=== PATIENT | female | born 1995 | race Caucasian/White ===

== ENCOUNTER 2018-01-26 00:48 | Outpatient (CLI) | payer MEDICAID, SELFPAY ==
--- NOTE | 2018-01-26 12:48 | DI.US_ITS ---
SYMPTOM/DIAGNOSIS: RT PELVIC PAIN, R10.2 PELVIC ULTRASOUND: Pelvic ultrasound was performed transabdominally and transvaginally. Please see the accompanying work sheet for measurements of the pelvic structures. Myometrium appears normal. Endometrial stripe is homogeneous and about 5 mm. in thickness. The ovaries have a normal follicular appearance. A small quantity of free fluid is noted in the adnexal regions bilaterally which may be physiologic. No significant fluid in the cul-de-sac. Limited scanning of the kidneys is unremarkable. CONCLUSION: Negative pelvic ultrasound.
[2018-01-26 14:05] LABS: Bilirubin Negative (Negative); Blood Small (Negative); Clarity Cloudy; Glucose Negative (Negative); Ketones Negative (Negative); Leukocyte Esterase Large (Negative); Nitrite Positive (Negative); Specific Gravity 1.015 (1.005-1.025); Urobilinogen 0.2 EU/dL (Up TO 0.2)
[2018-01-26 14:13] LABS: C & S Indicated? C&S Done As Ordered; WBC >50 HPF (0-5)
== END 2018-01-26 01:08 ==
PROVIDERS: PCP Physician Assistant Medical; Visit Provider Physician Assistant Medical
DX: R10.2 Pelvic and perineal pain (principal); N39.0 Urinary tract infection, site not specified
CPT/HCPCS: 87077; 76830; 76856; 81003; 81015; 87086; 87186

== ENCOUNTER 2018-07-31 15:09 | Outpatient (REF) | payer MEDICAID, SELFPAY | END 2018-07-31 15:29 | LOC: NCHCN 15:09 | PROVIDERS: PCP Physician Assistant Medical; Visit Provider Physician Assistant Medical | DX: N39.0 Urinary tract infection, site not specified (principal) | CPT/HCPCS: 87077; 87086; 87186 ==

== ENCOUNTER 2018-10-20 15:36 | Outpatient (REF) | payer OTHER, SELFPAY ==
[2018-10-25 16:40] LABS: Carboxy-THC Interpretation Positive.; Delta-9 CarboxyThc by LC-MS/MS 7 ng/mL (Cutoff:<3)
== END 2018-10-20 15:56 ==
LOC: NCHCN 15:36
PROVIDERS: PCP Physician Assistant Medical; Visit Provider Physician Assistant Medical
DX: Z13.89 Encounter for screening for other disorder (principal)
CPT/HCPCS: 80349

== ENCOUNTER 2019-04-09 20:01 | Outpatient (REF) | payer SELFPAY ==
--- NOTE | 2019-04-09 14:30 | PAPFT_PTH ---
PATIENT: Garima Stanford LOC: [facility]#:[id number] AGE/SX: 23/F ROOM: RE04/09/[address]: Tenzin Rios : 1995 BED: DIS: 04/09/2019 SPEC #: [id number] RECD: 04/12/19 12:58 STATUS: BETZY RERudy #: [id number] IRWIN: 04/09/19 14:[address]: Tenzin Rios DEPT: [facility] Cytology RECD BY: Анна Allred Tissues: 1 - CX/ENDOCX FOR PAP SMEARS Procedures: PAP THIN PREP/UVM Screening Comments: [id number]
[2019-04-12 14:38] LABS: Chlamydia Result Negative (Negative); GC Result Negative (Negative)
== END 2019-04-09 20:21 ==
LOC: NCHCN 20:01
PROVIDERS: PCP Physician Assistant Medical; Visit Provider Physician Assistant Medical
DX: Z00.00 Encounter for general adult medical examination without abnormal findings (principal); R10.2 Pelvic and perineal pain; Z11.3 Encounter for screening for infections with a predominantly sexual mode of transmission; Z12.4 Encounter for screening for malignant neoplasm of cervix; Z01.419 Encounter for gynecological examination (general) (routine) without abnormal findings
CPT/HCPCS: 87491; 87591; 88142; 87480; 87510; 87660

== ENCOUNTER 2019-10-29 09:58 | Outpatient (REF) | payer SELFPAY | END 2019-10-29 10:18 | LOC: NCHCN 09:58 | PROVIDERS: PCP Physician Assistant Medical; Visit Provider Physician Assistant Medical | DX: N39.0 Urinary tract infection, site not specified (principal) | CPT/HCPCS: 87086 ==

== ENCOUNTER 2021-03-06 13:47 | Emergency (ER) | payer SELFPAY ==
[2021-03-06 13:52] VITALS: BP 115/71; PULSE 84; RESP 16; O2SAT 99
--- NOTE | 2021-03-06 14:05 | ED.GENADUL_ITS ---
Discharge Plan Disposition Patient Disposition: HOME Condition: Improving Discharge Details Clinical Impression: UTI (urinary tract infection) Primary Care Provider: Tenzin Rios ED Provider: Paddy Cifuentes Home Meds and New Rx's Prescriptions: New sulfamethoxazole-trimethoprim [Bactrim DS] 800-160 mg tablet 1 tab PO BID 7 Days Qty: 14 RF: 0 phenazopyridine [Pyridium] 100 mg tablet 100 mg PO TID PRN (Reason: pain) Qty: 6 RF: 0 Continued trazodone 50 MG tablet 50 mg PO DAILY RF: 0 ranitidine HCl 300 MG tablet 300 mg PO DAILY RF: 0 calcium carbonate 500 MG tablet,chewable 500 mg PO RF: 0 albuterol sulfate [ProAir HFA] 8.5 GM HFA aerosol inhaler 1 puff Inhalation Q4H PRN RF: 0 medroxyprogesterone [Depo-Provera] 150 MG/1 ML syringe 150 mg IM RF: 0 Discharge Instructions Instructions: Urinary Tract Infection in Women (ED) Additional Instructions: May use Pyridium as prescribed as needed for burning discomfort. This off turn the urine bright orange. Take as prescribed until finished. Return to the emergency department for any acute concerns. Medical Decision Making 25-year-old female presents with hours of urinary freq, urgency, burning with urination. No back pain, fever or vomiting. Denies being . Her labs are reassuring as is her exam. Urinalysis consistent with urinary tract infection. Will treat with Keflex and Pyridium. She is stable and appropriate for outpatient management HPI General Mode of arrival: ambulatory . Date/Time Provider Initiated Documentation: 03/06/21 13:47 . Limitations to Documentation: no limitations . Information obtained by: patient . History of Present Illness 25 year old F presents to the emergency department with the chief complaint of I think I have a UTI, described as moderate, and is localized to the pelvis. Patient reports no radiation. Patient started experiencing this hour(s) and it has been constant. No relieving factors improve symptom(s), No exacerbating factors reported . Patient did receive the following treatments prior to arri kelsea, none Related Data Home Medications Medication Instructions Recorded Confirmed albuterol sulfate [ProAir HFA] 1 puff INHALATION Q4H PRN inhaler 11/09/15 02/09/18 calcium carbonate 500 mg PO tab.chew 11/09/15 02/09/18 medroxyprogesterone [Depo-Provera] 150 mg IM 11/09/15 02/09/18 ranitidine HCl 300 mg PO DAILY tab-cap 11/09/15 02/09/18 trazodone 50 mg PO DAILY tab-cap 11/09/15 02/09/18 phenazopyridine [Pyridium] 100 mg PO TID PRN #6 tab 03/06/21 sulfamethoxazole-trimethoprim 1 tab PO BID 7 Days #14 tab 03/06/21 [Bactrim DS] Previous Rx's Medication Instructions Recorded phenazopyridine [Pyridium] 100 mg PO TID PRN #6 tab 03/06/21 sulfamethoxazole-trimethoprim 1 tab PO BID 7 Days #14 tab 03/06/21 [Bactrim DS] Allergies Allergy/AdvReac Type Severity Reaction Status Date / Time lactose Allergy Unverified 03/06/21 13:55 Penicillins Allergy Unverified 03/06/21 13:55 General Stated Complaint: Urinary MADISON: 4 Review of Systems Narrative: No recent illness. No vaginal discharge or bleeding. 6 systems reviewed and otherwise negative. PFSH All Active Problems (Updated 03/06/21 @ 14:19 by Paddy Cifuentes MD) UTI (urinary tract infection) (Acute) Recurrent UTI (Acute 11/09/15) Medullary sponge kidney (Acute 11/27/15) Hematuria (Acute 11/09/15) Abdominal pain in female (Acute 11/09/15) Medical History Abdominal pain Abnormal finding on ultrasound Contraception Exposure to cigarette smoke Family history of Crohn's disease Female pelvic pain Indigestion Kidney, medullary sponge Social History Smoking/Tobacco Use Status: Never Smoking risk assessment performed?: Yes Alcohol Intake: current Alcohol Intake frequency: holidays/special occasions only Drug use: Daily Substance use type: marijuana Do you feel safe at home: Yes Do you feel safe in your relationship?: Yes Exam Narrative Exam Narrative: GEN: awake, alert, oriented 3. Pleasant, well groomed, interactive. HEAD: Normocephalic, atraumatic ENT: Mucous membranes moist, oropharynx unremarkable, External ear exam unremarkable EYES: PERRL, EOMI NECK: Full ROM, no ALYTON, no menigismus CHEST/RESP: Nontender, clear to auscultation bilateral, no wheeze/rhonchi/rales CARDIOVASCULAR: RRR, no murmur, rub hema. 2+ Rad pulse bilateral ABDOMEN: Soft, slightly tender suprapubic, no mass. +Bowel sounds EXT: Full ROM, no edema, no rash Neuro: Grossly normal neurologic exam, conversant, interactive. Psych: Speech fluent, thoughts congruent, affect normal Course Vital Signs Vital signs: Vital Signs Pulse 84 03/06/21 13:52 Respiratory Rate 16 03/06/21 13:52 Blood Pressure 115/71 03/06/21 13:52 Pulse Oximetry 99 03/06/21 13:52 Pulse 84 03/06/21 13:52 Respiratory Rate 16 03/06/21 13:52 Respiratory Effort Non-Labored 03/06/21 13:56 Blood Pressure 115/71 03/06/21 13:52 Blood Pressure Position Sitting 03/06/21 13:52 Pulse Oximetry 99 03/06/21 13:52 Oxygen Delivery Method Room Air 03/06/21 13:52 Oxygen Flow Rate 0 03/06/21 13:52
[2021-03-06 14:12] LABS: Bilirubin Negative (Negative); Blood Moderate (Negative); Clarity Cloudy (Clear); Glucose Negative (Negative); Ketones Negative (Negative); Leukocyte Esterase Small (Negative); Nitrite Negative (Negative); Specific Gravity >= 1.030 (1.005-1.025); Urobilinogen 0.2 EU/dL (Up TO 0.2); pH 6.5 (5-8)
[2021-03-06 14:21] LABS: Bacteria Moderate HPF (Negative); C & S Indicated? Yes; Casts Negative LPF (Negative); Crystals Negative HPF (Negative); Epithelial Cells Few HPF (Negative); Mucus Trace (Negative); WBC >50 HPF (0-5)
== END 2021-03-06 14:25 | disposition home or self-care (01) ==
PROVIDERS: Emergency Provider Emergency Medicine; PCP Physician Assistant Medical
DX: N39.0 Urinary tract infection, site not specified (principal); B96.20 Unspecified Escherichia coli [E. coli] as the cause of diseases classified elsewhere
CPT/HCPCS: 81025; 87077; 99283; 81003; 81015; 87086; 87186

== ENCOUNTER 2021-06-04 16:29 | Outpatient (REF) | payer SELFPAY | END 2021-06-04 16:30 | disposition home or self-care (01) | LOC: NCHCN 16:29 | PROVIDERS: PCP Physician Assistant Medical; Visit Provider Nurse Practitioner Family | DX: N39.0 Urinary tract infection, site not specified (principal) | CPT/HCPCS: 87086 ==

== ENCOUNTER 2021-06-05 19:04 | Emergency (ER) | payer SELFPAY ==
[2021-06-05 19:07] VITALS: BP 141/81; PULSE 97; RESP 18; TEMP 37; O2SAT 98
--- NOTE | 2021-06-05 19:15 | DI.CT_ITS ---
Exam(s) CT ABDOMEN PELVIS W EXAM: CT ABDOMEN PELVIS W INDICATION: RLQ pain. TECHNIQUE: FINDINGS: CT examination of the abdomen and pelvis was performed with a bolus infusion of 100 cc of Omnipaque 3 50. Images obtained through the lung bases are unremarkable. The liver is unremarkable in appearance. Gallbladder and bile ducts are CT normal. Pancreas appears normal. Spleen is unremarkable in appearance. Adrenals appear normal. The kidneys are unremarkable with no evidence of hydronephrosis, nephrolithiasis, or renal mass.. Ur inary bladder unremarkable. Abdominal aorta is of normal diameter and no major vascular abnormality is seen. No abdominal wall hernia. No abdominal or pelvic adenopathy. Uterus is unremarkable. There is a 25 millimeter in diameter intermediate attenuation right ovarian mass, likely hemorrhagic cyst. A fluid attenuation left ovarian 16 millimeter mass is noted consiste nt with cyst.. Appendix is normal. No evidence of diverticulitis or bowel obstruction. However note is made of poss ible mild wall thickening partially collapsed distal descending colon and sigmoid, please correlate r egarding the possibility of colitis. IMPRESSION: Possible hemorrhagic right ovarian cyst versus other ovarian pathology, pelvic ultrasound correlation recommended. Possible wall thickening, descending sigmoid colon, please correlate regarding possibility of colitis . RADIATION DOSE DELIVERED: 608.54mGy.cm Total DLP 608.54mGy.cm Total DLP !Error CTDIvol RADIATION OPTIMIZATION: All CT scans at this facility use at least one of these dose optimization te chniques: automated exposure control; mA and/or kV adjustment per patient size (includes targeted exa ms where dose is matched to clinical indication); or iterative reconstruction.
--- NOTE | 2021-06-05 19:27 | ED.GENADUL_ITS ---
Discharge Plan Disposition Patient Disposition: HOME Condition: Improving Discharge Details Clinical Impression: Ovarian cyst Primary Care Provider: Tenzin Rios ED Provider: Jerry Interiano Home Meds and New Rx's Prescriptions: New ibuprofen [IBU] 600 mg tablet 600 mg PO QID PRN (Reason: pain) Qty: 20 0RF Discharge Instructions Instructions: Ovarian Cyst (ED) Additional Instructions: Continue to stay well-hydrated and feel free to take [id number] pain medication. At this time no emergent findings have been noted but if you have any new or worsening symptoms, change in your condition, or further concerns that you feel or emergency feel free to return to the department for reassessment. While your symptoms are not classic for COVID-19 we have performed a swab given your reported headache and fever. It is recommended that if you continue to have the symptoms that you isolate from others until results are available which is typically in 24 to 48 hours. Referrals: [facility] [Provider Group] (Please call the office for discussion of follow-up for your ovarian cyst.) Discharge Data Discharge Date/Time-TO BE ENTERED AT DEPARTURE: 06/05/21 22:19 Medical Decision Making Patient presenting to the emergency department with chief complaint of headache, abdominal pain, fever chills, UTI. Patient states that she was seen at her primary care provider's office yesterday for complaints of her typical UTI symptoms today has acutely worsened. Physical exam shows no CVA tenderness but patient does elicit right lower quadrant pain with palpation. Plan to perform labs and CT imaging with concern of possible appendicitis or other intra- abdominal pathology localized to right lower quadrant. Have low suspicion of pyelonephritis but this is considered given patient's report of fever at home but no fever was noticed here. Will treat patient with fluids and Toradol pending results. Review of labs show a mild leukocytosis, normal CMP, and little ketones in urine with otherwise unremarkable findings. CT imaging showing ovarian cyst with some slight free fluid but otherwise unremarkable. Given patient's height leukocytosis but small ovarian cyst I did contact OB on-call. She did not feel this was concerning at this time and question possible other etiology for patient's symptoms. Asked patient about other symptoms which she denied. We will plan on performing Covid testing on a send out basis with patient continue to monitor symptoms and return if anything changes or worsens. At this time given that urinalysis appears unremarkable for infection I did discuss with patient risk versus benefit of stopping antibiotic and that very unlikely that 1 dose would stop patient's urinary symptoms. After discussion of diagnosis and plan of care patient has no further needs, questions, or concerns and states clear understanding to return to the emergency department for any worsening symptoms. Imaging Data Radiologic Study: Imaging: CT Scan Radiologist's impression: IMPRESSION: 1. 2.7 cm x 2.5 cm heterogeneous right ovarian lesion with varying density levels. A hemorrhagic enlarged follicle or cyst is suspected primarily in a young patient although this finding is not definitively characterized by the current exam. 1.3 cm dominant left ovarian follicle. Small amount of free fluid in the deep pelvis. 2. No acute bowel pathology demonstrated. Normal appendix. 3. Probable fatty infiltration of the liver, difficult to confidently diagnose by CT imaging after administration of intravenous contrast. Lab Data Lab results reviewed: Yes I reviewed the patient's lab results. Labs: Laboratory Tests Range/Units 06/05/21 06/05/21 06/05/21 19:28 19:30 19:30 WBC (4.4-10.8) 10^3/uL 12.72 H RBC (3.93-5.22) 10^6/uL 4.83 Hgb (11.2-15.7) g/dL 14.9 Hct (36.0-46.0) % 45.5 MCV (80-95) fL 94.2 MCH (27.0-33.0) pg 30.8 MCHC (32.0-36.0) % 32.7 RDW (11.7-14.6) % 14.1 Plt Count (130-400) 10^3/uL 224 MPV (8.0-11.0) fL 9.9 Immature Gran % 0.8 Neutrophils % 84.4 Lymphocytes % 4.2 Monocytes % 9.7 Eosinophils % 0.5 Basophils % 0.4 Nucleated RBC % % 0 Absolute Neutrophils (1.2-6.7) 10^3/uL 10.74 H Absolute Lymphocytes (1.2-3.4) 10^3/uL 0.53 L Absolute Monocytes (0.1-0.8) 10^3/uL 1.23 H Absolute Eosinophils (0.0-0.7) 10^3/uL 0.06 Absolute Basophils (0.0-0.2) 10^3/uL 0.05 Sodium (136-145) mmol/L 137 Potassium (3.5-5.1) mmol/L 3.5 Chloride (98-107) mmol/L 101 Carbon Dioxide (21.0-32.0) mmol/L 25.1 Anion Gap (3-11) mmol/L 10.9 BUN (7-18) mg/dL 9 Creatinine (0.55-1.02) mg/dL 0.6 Estimated GFR/1.73 m2 (mL/min/1.73m2) >= 60.00 Glucose (74-106) mg/dL 97 Calcium (8.5-10.1) mg/dL 9.2 Magnesium (1.8-2.4) mg/dL 1.9 Total Bilirubin (0.2-1.0) mg/dL 0.4 AST (15-37) U/L 15 ALT (14-59) U/L 32 Alkaline Phosphatase (46-116) U/L 99 Total Protein (6.4-8.2) g/dL 7.9 Albumin (3.4-5.0) g/dL 4.4 Lipase (73-393) U/L 350 Urine Color (Yellow) Yellow Urine Clarity (Clear) Sl Cloudy Urine pH (5-8) 7.5 Ur Specific Morton (1.005-1.025) 1.025 Urine Protein (Negative) mg/dL Negative Urine Ketones (Negative) mg/dL 40 H Urine Blood (Negative) Negative Urine Nitrite (Negative) Negative Urine Bilirubin (Negative) Negative Urine Urobilinogen (Up TO 0.2) EU/dL 0.2 Ur Leukocyte Esterase (Negative) Negative Urine Glucose (Negative) mg/dL Negative SARS-CoV-2 (PCR) (Negative) Nasopharyn COVID-19 PCR Ref Test Perform Site Range/Units 06/05/21 21:28 WBC (4.4-10.8) 10^3/uL RBC (3.93-5.22) 10^6/uL Hgb (11.2-15.7) g/dL Hct (36.0-46.0) % MCV (80-95) fL MCH (27.0-33.0) pg MCHC (32.0-36.0) % RDW (11.7-14.6) % Plt Count (130-400) 10^3/uL MPV (8.0-11.0) fL Immature Gran % Neutrophils % Lymphocytes % Monocytes % Eosinophils % Basophils % Nucleated RBC % % Absolute Neutrophils (1.2-6.7) 10^3/uL Absolute Lymphocytes (1.2-3.4) 10^3/uL Absolute Monocytes (0.1-0.8) 10^3/uL Absolute Eosinophils (0.0-0.7) 10^3/uL Absolute Basophils (0.0-0.2) 10^3/uL Sodium (136-145) mmol/L Potassium (3.5-5.1) mmol/L Chloride (98-107) mmol/L Carbon Dioxide (21.0-32.0) mmol/L Anion Gap (3-11) mmol/L BUN (7-18) mg/dL Creatinine (0.55-1.02) mg/dL Estimated GFR/1.73 m2 (mL/min/1.73m2) Glucose (74-106) mg/dL Calcium (8.5-10.1) mg/dL Magnesium (1.8-2.4) mg/dL Total Bilirubin (0.2-1.0) mg/dL AST (15-37) U/L ALT (14-59) U/L Alkaline Phosphatase (46-116) U/L Total Protein (6.4-8.2) g/dL Albumin (3.4-5.0) g/dL Lipase (73-393) U/L Urine Color (Yellow) Urine Clarity (Clear) Urine pH (5-8) Ur Specific Morton (1.005-1.025) Urine Protein (Negative) mg/dL Urine Ketones (Negative) mg/dL Urine Blood (Negative) Urine Nitrite (Negative) Urine Bilirubin (Negative) Urine Urobilinogen (Up TO 0.2) EU/dL Ur Leukocyte Esterase (Negative) Urine Glucose (Negative) mg/dL SARS-CoV-2 (PCR) (Negative) Positive A* Nasopharyn COVID-19 PCR Not Applicable Ref Test Perform Site [id number] [facility] Lab HPI General Mode of arrival: ambulatory . Date/Time Provider Initiated Documentation: 06/05/21 19:14 . Limitations to Documentation: no limitations . Information obtained by: patient, RN notes reviewed and old records reviewed . History of Present Illness 25 year old F presents to the emergency department with the chief complaint of Fever/UTI, described as moderate, with intensity rated at 10. Quality is described as aching, and is localized to the head and abdomen. Patient reports no radiation. Patient started experiencing this day(s) (1) and it has been constant. No exacerbating factors reported . Patient notes no other symptoms.. Patient did receive the following treatments prior to arrival, other (Started Bactrim today at 3 PM for) Related Data Home Medications Medication Instructions Recorded Confirmed ibuprofen 600 mg tablet (IBU) 600 mg PO QID PRN #20 tab 06/05/21 Previous Rx's Medication Instructions Recorded ibuprofen 600 mg tablet (IBU) 600 mg PO QID PRN #20 tab 06/05/21 Allergies Allergy/AdvReac Type Severity Reaction Status Date / Time lactose Allergy Unverified 06/05/21 19:13 Penicillins Allergy Unverified 06/05/21 19:13 General Stated Complaint: Urinary MADISON: 3 Review of Systems Constitutional Constitutional: Denies body ache(s), Reports chills, Reports fever(s), Reports malaise and Denies weakness Cardiovascular Cardiovascular: Denies chest pain Respiratory Respiratory: Reports system reviewed and no additional complaints, except as documented Gastrointestinal Gastrointestinal: Reports abdominal pain, Reports nausea and Reports vomiting Genitourinary Genitourinary: Reports as per HPI, Denies hematuria, Reports difficulty voiding, Reports dysuria and Reports urinary urgency Musculoskeletal Musculoskeletal: Denies back pain Neurologic Neurologic: Denies confusion and Denies weakness Psychiatric Psychiatric: Denies confusion PFSH All Active Problems (Updated 06/05/21 @ 22:14 by Jerry Interiano NP) Ovarian cyst (Acute) Recurrent UTI (Acute 11/09/15) Medullary sponge kidney (Acute 11/27/15) Hematuria (Acute 11/09/15) Abdominal pain in female (Acute 11/09/15) Medical History Abdominal pain Abnormal finding on ultrasound Contraception Exposure to cigarette smoke Family history of Crohn's disease Female pelvic pain Indigestion Kidney, medullary sponge Social History Smoking/Tobacco Use Status: Never Smoking risk assessment performed?: Yes Alcohol Intake: current Alcohol Intake frequency: holidays/special occasions only Drug use: Daily Substance use type: marijuana Do you feel safe at home: Yes Do you feel safe in your relationship?: Yes Exam Const General: cooperative Orientation: alert, awake and oriented x3 Resp Effort & Inspection: normal respiratory effort and able to speak in complete sentences Auscultation: clear to auscultation bilaterally Cardio Rate: regular rate Rhythm: regular rhythm Heart Sounds: S1 normal and S2 normal GI Palpation: soft, no hepatosplenomegaly, not firm, no guarding, no masses, no pulsatile masses, not rigid, no splenomegaly and tender in the RLQ Auscultation: normal bowel sounds Back/Spine/Pelvis Back: no CVA tenderness Neuro General: patient alert, patient awake, patient oriented x3, gait normal and moves all extremities Course Vital Signs Vital signs: Vital Signs Temperature 37.0 C 06/05/21 19:07 Pulse 97 H 06/05/21 19:07 Respiratory Rate 18 06/05/21 19:07 Blood Pressure 141/81 H 06/05/21 19:07 Pulse Oximetry 98 06/05/21 19:07 Temperature 37.0 C 06/05/21 19:07 Temperature Source Temporal Artery Scan 06/05/21 19:07 Pulse 97 H 06/05/21 19:07 Respiratory Rate 18 06/05/21 19:07 Respiratory Effort 06/05/21 19:14 Blood Pressure 141/81 H 06/05/21 19:07 Blood Pressure Position Sitting 06/05/21 19:07 Pulse Oximetry 98 06/05/21 19:07 Oxygen Delivery Method Room Air 06/05/21 19:07 Oxygen Flow Rate 0 06/05/21 19:07 Pain Level 10 06/05/21 19:07 Lab/Test Results Lab/Test Results: POC- Test(urine) Negative
[2021-06-05] MEDS: Normal Saline 1,000 ML 1000 ML IV (19:38)
[2021-06-05] MEDS: Ketorolac 15 MG/ML VIAL IVP (19:38)
[2021-06-05] MEDS: Ondansetron 4 MG/2 ML VIAL IVP (19:38)
[2021-06-05 19:39] LABS: Absolute Basophil Count 0.05 10^3/uL (0.0-0.2); Absolute Eosinophil Count 0.06 10^3/uL (0.0-0.7); Absolute Lymphocyte Count 0.53 10^3/uL (1.2-3.4); Absolute Neutrophil Count 10.74 10^3/uL (1.2-6.7); Basophils % 0.4; Eosinophils % 0.5; HCT 45.5 % (36.0-46.0); HGB 14.9 g/dL (11.2-15.7); Immature Grans % 0.8; Lymphocytes % 4.2; MCH 30.8 pg (27.0-33.0); MCHC 32.7 % (32.0-36.0); MCV 94.2 fL (80-95); MPV 9.9 fL (8.0-11.0); Monocytes % 9.7; Neutrophils % 84.4; Nucleated RBC 0 %; Platelet Count 224 10^3/uL (130-400); RBC 4.83 10^6/uL (3.93-5.22); RDW 14.1 % (11.7-14.6); RDW-SD 48.7 fL; WBC 12.72 10^3/uL (4.4-10.8)
[2021-06-05 19:41] LABS: Bilirubin Negative (Negative); Blood Negative (Negative); Clarity Sl Cloudy (Clear); Glucose Negative (Negative); Ketones 40 mg/dL (Negative); Leukocyte Esterase Negative (Negative); Nitrite Negative (Negative); Specific Gravity 1.025 (1.005-1.025); Urobilinogen 0.2 EU/dL (Up TO 0.2); pH 7.5 (5-8)
[2021-06-05] MEDS: Omnipaque 350 MG/ML 100 ML BTL IJ (19:42)
[2021-06-05 19:43] LABS: Absolute Monocyte Count 1.23 10^3/uL (0.1-0.8)
[2021-06-05] MEDS: Normal Saline Flush 10 ML SYR IVP (19:44)
[2021-06-05 20:11] LABS: ALT 32 U/L (14-59); AST 15 U/L (15-37); Albumin 4.4 g/dL (3.4-5.0); Alkaline Phosphatase 99 U/L (46-116); Anion Gap 10.9 mmol/L (3-11); BUN 9 mg/dL (7-18); Bilirubin, Total 0.4 mg/dL (0.2-1.0); CO2 25.1 mmol/L (21.0-32.0); CREATININE 0.6 mg/dL (0.55-1.02); Calcium 9.2 mg/dL (8.5-10.1); Chloride 101 mmol/L (98-107); Glucose 97 mg/dL (74-106); Lipase 350 U/L (73-393); Magnesium 1.9 mg/dL (1.8-2.4); Potassium 3.5 mmol/L (3.5-5.1); Sodium 137 mmol/L (136-145); Total Protein 7.9 g/dL (6.4-8.2)
--- NOTE | 2021-06-05 20:34 | DI.VRAD_ITS ---
Addendum created by Kwabena Lai MD on 06/05/2021 8:41:40 PM EDT: There is a dictation error in the associated report in the IMPRESSION section. IMPRESSION number 2 should read: Mild mural thickening through the partially collapsed descending and proximal sigmoid colon. Artifact of incomplete distention or acute segmental colitis could have this appearance. Clinical correlation is recommended. Normal appendix. Initial report created on 06/05/2021 8:33:45 PM EDT: PROCEDURE INFORMATION: Exam: CT Abdomen And Pelvis With Contrast Exam date and time: 06/05/2021 7:45 PM Age: 25 years old Clinical indication: Abdominal pain; Localized; Right lower quadrant (rlq); Patient HX: Rlq pain; Additional info: HX of medullary sponge kidney TECHNIQUE: Imaging protocol: Computed tomography of the abdomen and pelvis with contrast. Radiation optimization: All CT scans at this facility use at least one of these dose optimization techniques: automated exposure control; mA and/or kV adjustment per patient size (includes targeted exams where dose is matched to clinical indication); or iterative reconstruction. Contrast material: OMNIPAQUE 350; Contrast volume: 80 ml; Contrast route: INTRAVENOUS (IV); COMPARISON: CT Abdomen^UROGRAM (Adult) 11/16/2015 8:39 AM FINDINGS: Lungs: Lung bases clear. Liver: Probable fatty infiltration of the liver, difficult to confidently diagnose by CT imaging after administration of intravenous contrast. Gallbladder and bile ducts: Gallbladder partially collapsed. No calcified gallstones seen. No biliary dilatation. Pancreas: Normal appearing pancreas. Spleen: Normal appearing spleen. Adrenal glands: Normal appearing adrenal glands. Kidneys and ureters: Normal appearing kidneys. No hydronephrosis. Ureters partially obscured. No suspicious calcifications along the expected ureteral courses. Stomach and bowel: No oral contrast. Stomach partially distended with fluid. No small bowel dilatation to suggest obstruction. Normal-appearing cecum, ascending colon, and transverse colon. Mild mural thickening through the partially collapsed descending and proximal sigmoid colon. Artifact of incomplete distention? Acute segmental colitis? Clinical correlation recommended. No evidence of diverticulitis. Rectum moderately distended with gas. Appendix: Normal appendix. Intraperitoneal space: Trace free fluid in the deep pelvis. No free air. Vasculature: Normal caliber abdominal aorta. Lymph nodes: No pathologically enlarged mesenteric, retroperitoneal, or pelvic sidewall lymph nodes. Urinary bladder: Urinary bladder partially collapsed but grossly unremarkable, as seen. Reproductive: Anteverted uterus, normal in size. Normal-sized left ovary with a 1.3 cm dominant follicle. 2.7 cm x 2.5 cm heterogeneous hypoattenuating right ovarian lesion with a region of fluid density measuring 12 Hounsfield units and a region of complex density measuring 43 Hounsfield units. Bones/joints: No acute fracture seen among the bones of the abdomen or pelvis. Soft tissues: Tiny fat-containing ventral hernia at the umbilicus, doubtful clinical significance. IMPRESSION: 1. 2.7 cm x 2.5 cm heterogeneous right ovarian lesion with varying density levels. A hemorrhagic enlarged follicle or cyst is suspected primarily in a young patient although this finding is not definitively characterized by the current exam. 1.3 cm dominant left ovarian follicle. Small amount of free fluid in the deep pelvis. 2. No acute bowel pathology demonstrated. Normal appendix. 3. Probable fatty infiltration of the liver, difficult to confidently diagnose by CT imaging after administration of intravenous contrast. Dictated and Authenticated by: Kwabena Lai MD. Ordering:JOSEPH Edwards MD
[2021-06-05 21:14] VITALS: BP 134/84; PULSE 105; TEMP 37; O2SAT 97
[2021-06-05] MEDS: Acetaminophen 500 MG TAB 1000 MG PO (22:15)
[2021-06-07 14:34] LABS: COVID-19 RT-PCR UVMMC Result Positive (Negative)
== END 2021-06-05 22:19 | disposition home or self-care (01) ==
LOC: ER 22:20
PROVIDERS: Emergency Provider Nurse Practitioner Family; PCP Physician Assistant Medical
DX: U07.1 COVID-19 (principal); N83.201 Unspecified ovarian cyst, right side; R51.9 Headache, unspecified; Z20.822 Contact with and (suspected) exposure to COVID-19; R50.9 Fever, unspecified; R10.31 Right lower quadrant pain
CPT/HCPCS: 80053; 81025; 83690; 96361; 96374; 96375; 99284; 99285; U0003; 74177; 81003; 83735; 85025; J1885; J2405; J3490

== ENCOUNTER → 2021-09-25 00:16 | Outpatient (CLI) | payer SELFPAY | PROVIDERS: PCP Physician Assistant Medical; Visit Provider Obstetrics & Gynecology ==

== ENCOUNTER 2022-02-27 01:45 | Outpatient (CLI) | payer MEDICAID, SELFPAY ==
[2022-02-27 16:23] LABS: Abs Immature Grans 0.11 10^3/uL (0.0-0.06); Absolute Basophil Count 0.05 10^3/uL (0.0-0.2); Absolute Eosinophil Count 0.11 10^3/uL (0.0-0.7); Absolute Lymphocyte Count 2.92 10^3/uL (1.2-3.4); Absolute Monocyte Count 0.73 10^3/uL (0.1-0.8); Basophils % 0.3; Eosinophils % 0.7; HCT 33.3 % (36.0-46.0); HGB 11.3 g/dL (11.2-15.7); Immature Grans % 0.7; Lymphocytes % 18.8; MCH 30.4 pg (27.0-33.0); MCHC 33.9 % (32.0-36.0); MCV 90 fL (80-95); MPV 10.4 fL (8.0-11.0); Monocytes % 4.7; Neutrophils % 74.8; Panorama Kit Sent via Fed Ex; Platelet Count 273 10^3/uL (130-400); RBC 3.72 10^6/uL (3.93-5.22); RDW 12.3 % (11.7-14.6); RDW-SD 40.4 fL; WBC 15.53 10^3/uL (4.4-10.8)
[2022-02-27 16:24] LABS: Absolute Neutrophil Count 11.62 10^3/uL (1.2-6.7)
[2022-03-01 09:46] LABS: Hepatitis B Surface Ag Negative (Negative)
[2022-03-01 10:12] LABS: HIV-1/2 Ag & Ab Screen Negative (Negative)
[2022-03-01 10:19] LABS: Hepatitis C Ab w Rflx HCV PCR Negative (Negative)
[2022-03-01 10:37] LABS: Rubella IgG Ab (UVM) Positive (See Note); Varicella IgG Antibody Positive (See Note)
[2022-03-04 15:29] LABS: Syphilis IgG w/Reflex Nonreactive (Nonreactive)
[2022-03-29 16:28] LABS: Result Summary NEGATIVE; Specimen WB Whole Blood
== END 2022-02-27 01:46 | disposition home or self-care (01) ==
PROVIDERS: PCP Physician Assistant Medical; Visit Provider Advanced Practice Midwife
DX: O99.891 Other specified diseases and conditions complicating pregnancy (principal); Z3A.15 15 weeks gestation of pregnancy; Q61.5 Medullary cystic kidney
CPT/HCPCS: 36415; 81220; 81222; 86787; 86803; 86850; 86900; 86901; 87340; 87389; 85025; 86762; 86780

== ENCOUNTER 2022-03-27 01:40 | Outpatient (CLI) | payer MEDICAID, SELFPAY ==
--- NOTE | 2022-03-27 07:45 | DI.US_ITS ---
Exam(s) US OB 2-3 TRIMESTER EXAM: US OB 2-3 TRIMESTER CLINICAL HISTORY: anatomy scan,z34.92. TECHNIQUE: Transabdominal obstetrical ultrasound was performed. COMPARISON: US POCUS EXAM from 01/09/2022 FINDINGS: There is a single viable intrauterine gestation with cardiac activity identified-150 bpm. Amniotic fluid: There is a normal amount of amniotic fluid. Placental location: The placenta is posterior grade 0,with no evidence of placenta previa.Distance fr om tip of placenta to the internal cervical os is 4 cm ANATOMY: A 3 vessel umbilical cord is seen. A four-chamber cardiac view was obtained. Right and left ventricular outflow tracts were imaged. There are no obvious abnormalities of the spinal column evident. There is no obvious abnormal ity of the anterior abdominal wall. stomach and urinary bladder are identified and there is no evidence of hydronephrosis. No abnormalities of the upper lip region are identified. No evidence of choroid plexus cysts i n the brain. Dating parameters place this at approximately 19 weeks gestational age. BPD measures 19 weeks and 1 day HC measures 18 weeks and 5 days AC measures 18 weeks and 4 days FL measures 19 weeks and 2 days Estimated weight is 263 gm-0 pounds, 9 ounces Fetus is at the 10th percentile on the Hadlock scale. IMPRESSION:: Single viable intrauterine gestation which is approximately 19 weeks gestational age, i mplying an NENA of August 21, 2022. There are no obvious anomalies evident on today's study. The placenta is posterior with no evidence of placenta previa. There is a normal amount of amniotic fluid. DATA REPOSITORY:
== END 2022-03-27 02:00 ==
PROVIDERS: PCP Physician Assistant Medical; Visit Provider Advanced Practice Midwife
DX: Z34.92 Encounter for supervision of normal pregnancy, unspecified, second trimester (principal)
CPT/HCPCS: 76805

== ENCOUNTER 2022-03-27 15:44 | Outpatient (REF) | payer MEDICAID, SELFPAY | END 2022-03-27 15:45 | disposition home or self-care (01) | LOC: LBN 15:44 | PROVIDERS: PCP Physician Assistant Medical; Visit Provider Advanced Practice Midwife | DX: Q61.5 Medullary cystic kidney (principal); Z34.92 Encounter for supervision of normal pregnancy, unspecified, second trimester | CPT/HCPCS: 87086 ==

== ENCOUNTER 2022-05-22 16:16 | Outpatient (REF) | payer MEDICAID, SELFPAY ==
[2022-05-22 17:07] LABS: *AMPHETAMINES SCREEN URINE Negative (Negative); *BARBITURATES SCREEN URINE Negative (Negative); *BENZODIAZEPINES SCREEN URINE Negative (Negative); Cannabinoids THC Positive (Negative); Cocaine Screen,Urine Negative (Negative); METHADONE URINE SCREEN Negative (Negative); OPIATES URINE SCREEN Negative (Negative); Tricyclic Antidepressants Negative (Negative)
[2022-05-28 12:29] LABS: Buprenorphine Negative ng/mL (Cutoff: 5.0); Norbuprenorphine Negative ng/mL (Cutoff: 2.5)
== END 2022-05-22 16:17 | disposition home or self-care (01) ==
LOC: LBN 16:16
PROVIDERS: PCP Physician Assistant Medical; Visit Provider Advanced Practice Midwife
DX: Z34.92 Encounter for supervision of normal pregnancy, unspecified, second trimester (principal); Z3A.27 27 weeks gestation of pregnancy
CPT/HCPCS: 80307; 80348

== ENCOUNTER 2022-05-28 02:30 | Outpatient (CLI) | payer MEDICAID, SELFPAY ==
[2022-05-28 15:17] LABS: HCT 34.1 % (36.0-46.0); HGB 11.7 g/dL (11.2-15.7); MCHC 34.3 % (32.0-36.0); MCV 91 fL (80-95); MPV 10.7 fL (8.0-11.0); Platelet Count 267 10^3/uL (130-400); RBC 3.77 10^6/uL (3.93-5.22); RDW 12.9 % (11.7-14.6); RDW-SD 42.5 fL; WBC 17.08 10^3/uL (4.4-10.8)
[2022-05-28 15:24] LABS: Glucose,1 Hr (Glucola) 176 mg/dL (80-140)
== END 2022-05-28 02:31 | disposition home or self-care (01) ==
LOC: LBO 02:30
PROVIDERS: Advanced Practice Midwife; PCP Physician Assistant Medical; Visit Provider Advanced Practice Midwife
DX: Z34.93 Encounter for supervision of normal pregnancy, unspecified, third trimester (principal); Z3A.28 28 weeks gestation of pregnancy
CPT/HCPCS: 36415; 82950; 85027

== ENCOUNTER 2022-06-11 03:03 | Outpatient (CLI) | payer MEDICAID, SELFPAY ==
[2022-06-11 09:40] LABS: Glucose 1 Hour 227 mg/dL
[2022-06-11 11:28] LABS: Glucose 3 Hour 85 mg/dL
== END 2022-06-11 03:04 | disposition home or self-care (01) ==
LOC: LBO 03:04
PROVIDERS: PCP Physician Assistant Medical; Visit Provider Advanced Practice Midwife
DX: Z34.93 Encounter for supervision of normal pregnancy, unspecified, third trimester (principal); Z3A.29 29 weeks gestation of pregnancy
CPT/HCPCS: 36415; 82951

== ENCOUNTER 2022-07-04 16:11 | Outpatient (REF) | payer MEDICAID, SELFPAY ==
[2022-07-04 17:17] LABS: *AMPHETAMINES SCREEN URINE Negative (Negative); *BARBITURATES SCREEN URINE Negative (Negative); *BENZODIAZEPINES SCREEN URINE Negative (Negative); Cannabinoids THC Positive (Negative); Cocaine Screen,Urine Negative (Negative); METHADONE URINE SCREEN Negative (Negative); OPIATES URINE SCREEN Negative (Negative)
[2022-07-04 17:24] LABS: Tricyclic Antidepressants Negative (Negative)
[2022-07-11 15:52] LABS: Buprenorphine Negative ng/mL (Cutoff: 5.0); Norbuprenorphine Negative ng/mL (Cutoff: 2.5)
== END 2022-07-04 16:12 | disposition home or self-care (01) ==
LOC: LBN 16:11
PROVIDERS: PCP Physician Assistant Medical; Visit Provider Advanced Practice Midwife
DX: Z34.90 Encounter for supervision of normal pregnancy, unspecified, unspecified trimester
CPT/HCPCS: 80307; 80348; 87086

== ENCOUNTER 2022-07-19 16:50 | Outpatient (REF) | payer MEDICAID, SELFPAY | END 2022-07-19 16:51 | disposition home or self-care (01) | LOC: LBN 16:50 | PROVIDERS: PCP Physician Assistant Medical; Visit Provider Advanced Practice Midwife | DX: Z34.93 Encounter for supervision of normal pregnancy, unspecified, third trimester (principal); Z36.85 Encounter for antenatal screening for Streptococcus B; Z3A.36 36 weeks gestation of pregnancy | CPT/HCPCS: 87081 ==

== ENCOUNTER 2022-08-15 16:48 | Inpatient (IN) | payer MEDICAID, SELFPAY ==
[2022-08-15] VITALS (31 sets, daily range): BP systolic 99–146; BP diastolic 54–86; PULSE 58–143; RESP 16; TEMP 36.4–36.9; O2SAT 97–100; BMI 27.5
--- NOTE | 2022-08-15 16:47 | HPE_ITS ---
Date of service: 08/15/22 Time of Service: 16:47 Assessment and Plan Assessment and plan (1) PROM with onset of labor more than 24 hours following rupture: Status: Acute Assessment and plan: A: 26 yo G1 @ 39+6 wks SROM clear confirmed, unknown time >24 hrs ago GBS Neg, Rh+, category 1 tracing Favorable cvx with kuhn score 7 Diet controlled GDM; EFW 2900 gms Hx noted of depression/anxiety (no meds), MJ use (POSC done 07/31/22) Low risk PPH except for risk from IOL process, mod risk for SD (GDM, primip) Maternal kidney condition, declined [facility] consult P: Admit to BC, T&S, CBC, IVF access Informed consent & choice for plan of care completed Begin pitocin induction protocol Discuss ATB prophylaxis with Dr. Sauceda Comfort measures as pt desires; pt requests Q&A with DIRECTOR OF ENVIRONMENTAL SERVICES Anticipate (2) Gestational diabetes: Status: Acute Assessment and plan: Pt has been home monitoring QID in third trimester Glucose logs pt has turned in indicate good control OB-HPI Labor/Delivery History of Present Illness Reason for Visit: NST Chief Complaint: Suspected Rupture of Membranes , Associated Signs and Symptoms of Suspected ROM: noticed increased clear vaginal discharge yesterday morning, had to change her clothes a couple of times, occasional watery gushes have continued today though smaller amounts and less often, her mother became concerned and advised her to call the research editor to discuss. Reports some lower abd cramping, no bleeding, lots of FM, no nausea or vomiting.. NENA Calculator Estimated Delivery Date Method Current WG Current Estimate 08/16/22 LMP (Certain) 39w 6d Other Estimates 08/17/22 Ultrasound #1 39w 5d History of Present Expected Delivery Route/Plan - CNM FOB - Khoa Matthews (has a 9 yo child) BG- Sycada Layla GDM @ 29 wks, diet controlled GBS negative Labor support team - Dodie, her Mom and Garima Couch hopes to avoid an epidural Specific Issues/Plan 1. PCN allergy agrees to [facility] allergy visit for testing, rash as baby 2. Medullary Sponge Kidney disease, frequent UTI's will also refer to [facility] 2a. Anatomy scan done at [facility] 2b. referral to MFM declined, reviewed again 07/04 continues to decline 3. No insurance at initial, labs defered to next visit 4. Consider urine culture every trimester 5. Is not COVID vaccinated, has not had COVID. 6. marijuana use - THC positive, repeat at 28 weeks, positive THC, POSC requested 07/05 7. Panorama and CF neg 8. 1 hour 176 on 05/29, 3 hour-102/227/153/85, GDM: Testing QID started 06/11/22 9. Declines Tdap Assessment: History Reviewed & Current Informed Consent Informed Consent: Induction of Labor (for PROM >24 hrs) and Risk,Be nefits,Alternatives Discussed Review of Systems Narrative: ROS completed and found to be noncontributory other then HPI PFSH All Active Problems (Updated 08/15/22 @ 16:59 by Toshia Drake) Medullary sponge kidney (Acute 11/27/15) PROM with onset of labor more than 24 hours following rupture (Acute) Gestational diabetes (Acute) Marijuana smoker (Acute) Anxiety (Chronic) Depression (Chronic) (Acute) Medical History (Updated 08/15/22 @ 16:59 by Toshia Drake) Abdominal pain in female (11/09/15) Abnormal finding on ultrasound Asthma Exposure to cigarette smoke Female pelvic pain Hematuria (11/09/15) Other specified counseling Patient desires Recurrent UTI (11/09/15) Family History (Updated 02/06/22 @ 15:41 by Rachael Josue CNM) Mother Hypertension Thyroid disease Maternal Grandmother Hypertension Thyroid disease Social History (Updated 06/15/21 @ 11:28 by Melanie Moran) Smoking/Tobacco Use Status: Never Smoking risk assessment performed?: Yes Alcohol Intake: current Alcohol Intake frequency: a few times a month Drug use: Daily Substance use type: marijuana What is your relationship status?: living with partner Panel score (0-1 are the most socially isolated patients): 1 Do you feel safe at home: Yes Do you feel safe in your relationship?: Yes Female Reproductive History Menstrual Age of Menarche: 13 Duration of menses: 3-5 days control method: none History History 1 Para 0 Hx # Term Pregnancies 0 Multiple births 0 Hx # Pregnancies 0 Ectopic pregnancies 0 AB induced 0 Hx Number of Living Children 0 AB spontaneous 0 Meds Allergies and Home Medications Allergies Allergy/AdvReac Type Severity Reaction Status Date / Time Penicillins Allergy Mild Unverified 08/08/22 15:37 Home Medications Medication Instructions Recorded Confirmed Type prenat.vits,bruna,[id number] 1 tab PO DAILY 01/02/22 08/08/22 History blood sugar diagnostic (FreeStyle #100 ea 06/11/22 08/08/22 Rx Lite Strips) blood-glucose meter (FreeStyle #1 ea 06/11/22 08/08/22 Rx Lite Meter kit) lancets 30 gauge (Onetouch Delica #100 ea 06/11/22 08/08/22 Rx Safety Lancet) Exam Physical Exam Vital signs: Pulse BP 93 H 107/58 L 08/15/22 16:07 08/15/22 16:07 Vital Signs Reviewed: Yes Constitutional Constitutional: no acute distress, average body habitus and cooperative Detailed Labor and Delivery Exam Dilation: 1.5 Effacement (%): 80 station: -2 Cervix position: posterior Consistency: soft KUHN Score(Cervical Ripeness Score): 7 Amniotic Membrane Status: Ruptured Rupture Method: Spontaneous Amniotic Fluid: Clear Pooling: Positive Nitrazine: Positive Ferning: Present Monitor Mode: External Contraction Frequency(min): rare Fetus A Heart Rate Baseline: 130 Monitor Accelerations: 15 X 15 Monitor Decelerations: None Variability: Moderate (6-25 BPM) Categories: Category I Est. Weight: 6 lb 6.294 oz Est. Weight: 2900 gms Date of Membrane Rupture: 08/14/22 Assessment Note: Unknown time of SROM, other then yesterday morning (>24 hrs ago) HEENT Exam HEENT Exam: Normal Neck Exam Neck Exam: Normal Chest/Brest/Axilla Exam Chest Exam: Normal Breast Exam Breast Exam: Not Done Respiratory Exam Respiratory Exam: Normal Cardiovascular Exam Cardiovascular Exam: Normal Abdominal Exam Abdominal Exam: Normal (Gravid, nontender) Rectal Exam Rectal Exam: Normal Exam Exam: Normal Extremities Exam Extremities Exam: Normal Back/Spine/Pelvis Exam Back Exam: Normal Pelvis Adequate: Yes Skin Exam Skin Exam: Normal Neurological Exam Neurological Exam: Normal Psychiatric Exam Psychiatric Exam: Normal Risk Assessment Risk for Shoulder Dystocia Historical/Initial OB: NEGATIVE FOR: Pelvic Abnormality, Pre- BMI>30, Previous Shoulder Dystocia or Previous Macrosomia Increased Risk?: No Date/Initial: 02/06/22 Delivery Plan @ 36wks: spont labor, Risk for Pre-Eclampsia Daily Dose ASA Indicated: No Date Initiated/Initials: 02/06/22 Yes, if one or more: NEGATIVE FOR: Hx Pre-E/Gest HTN, Chronic HTN, Multiple Gestation, Pre-gestational DM, Renal Disease, Systemic Lupus or APA Syndrome Yes, if 2 or more: POSITIVE FOR: Nulliparity; NEGATIVE FOR: Age>= 35 yrs, >10yr btwn pregnancies, BMI>30, ethinicty, Mother/Sister w/ Pre-E or Previous IUGR Risk for Post- Hemorrhage Initial: NEGATIVE FOR: Multiple Gestation, Previous PPH, Known Clotting Deficiency, Grand Multiparity or Anticoagulation At Risk?: Yes (d/t IOL for PROM) Counseled re: Active Management: Yes Risks Reviewed Risks Reviewed Upon Admission: Yes
[2022-08-15 17:10] LABS: HGB 12.3 g/dL (11.2-15.7); MCH 30.6 pg (27.0-33.0); MCHC 34.2 % (32.0-36.0); MCV 90 fL (80-95); MPV 10.6 fL (8.0-11.0); Platelet Count 285 10^3/uL (130-400); RBC 4.02 10^6/uL (3.93-5.22); RDW 13.2 % (11.7-14.6); RDW-SD 43.7 fL; WBC 21.34 10^3/uL (4.4-10.8)
--- NOTE | 2022-08-15 17:20 | W.ANESPRE ---
General Info Date of Service Date Performed: 08/15/22 Height: 5 ft Weight: 63.957 kg Body Mass Index (BMI): 27.5 Meds Allergies and Home Medications Allergies Allergy/AdvReac Type Severity Reaction Status Date / Time Penicillins Allergy Mild Unverified 08/08/22 15:37 Home Medication Medication Instructions Recorded prenat.vits,bruna,uto-[id number] 1 tab PO DAILY 01/02/22 blood sugar diagnostic (FreeStyle #100 ea 06/11/22 Lite Strips) blood-glucose meter (FreeStyle #1 ea 06/11/22 Lite Meter kit) lancets 30 gauge (Onetouch Delica #100 ea 06/11/22 Safety Lancet) Current Visit Medications: Current Medications Generic Name Dose Route Start Last Admin Trade Name Freq PRN Reason Stop Dose Admin Ringer's Solution 1,000 mls @ 125 mls/hr 08/15/22 16:45 IV INFUSION JOSE ALFREDO Sodium Chloride 500 mls @ 0 mls/hr 08/15/22 16:43 Saline 500ml Bag IV PRN PRN As Directed Oxytocin/Sodium Chloride 30 unit in 500 mls @ 2 mls/hr 08/15/22 16:45 Pitocin/Normal Saline IV INFUSION JOSE ALFREDO Protocol 2 MILLIUNITS/MIN IV Miscellaneous Supplies 1 each 08/15/22 16:45 Iv Access IV DIRECTED JOSE ALFREDO Sodium Chloride 0 ml 08/15/22 16:43 Normal Saline Flush 10 Ml Syr IVP PRN PRN PFSH Active Problems Active Problems: Problem Status Onset Code Medullary sponge kidney 11/27/15 Q61.5 PROM with onset of labor more than 24 hours following rupture O42.10 Gestational diabetes O24.419 Marijuana smoker F12.90 Anxiety F41.9 Depression F32.A Z34.90 Medical History Medical History (Updated 08/15/22 @ 16:59 by Toshia Drake) Abdominal pain in female (11/09/15) Abnormal finding on ultrasound Asthma Exposure to cigarette smoke Female pelvic pain Hematuria (11/09/15) Other specified counseling Patient desires Recurrent UTI (11/09/15) Tobacco Smoking/Tobacco Use Status: Never Alcohol Alcohol Intake: current Alcohol intake frequency: a few times a month Substance Use Substance use: Daily Substance use type: marijuana Prental History History 1 Para 0 Hx # Term Pregnancies 0 Multiple births 0 Hx # Pregnancies 0 Ectopic pregnancies 0 AB induced 0 Hx Number of Living Children 0 AB spontaneous 0 Vital Signs and Lab Results Vital Signs Most Recent Vital Signs in EMR: Most Recent Vital Signs Pulse BP 93 H 107/58 L 08/15/22 16:07 08/15/22 16:07 Lab Results 08/15/22 17:01 Blood Type / Crossmatch: Patient ABO/Rh O Positive 08/15/22 Antibody Screen NEGATIVE 08/15/22 Complete Blood Count: White Blood Count 21.34 10^3/uL (4.4-10.8) H 08/15/22 17:01 Red Blood Count 4.02 10^6/uL (3.93-5.22) 08/15/22 17:01 Hemoglobin 12.3 g/dL (11.2-15.7) 08/15/22 17:01 Hematocrit 36.0 % (36.0-46.0) 08/15/22 17:01 Platelet Count 285 10^3/uL (130-400) 08/15/22 17:01 Complete Metabolic Panel: No Data to Display Liver Function Panel: No Data to Display Coagulation Panel: No Data to Display Cardiac Panel: No Data to Display Arterial Blood Gas: No Data to Display Venous Blood Gas: No Data to Display Pancreas Panel: No Data to Display Thyroid Panel: No Data to Display Infectious Disease: No Data to Display Blood Cultures: No Data to Display Toxicology Panel: No Data to Display Panel: No Data to Display Anesthesia Assessment and Plan Anesthesia History Personal History: No History of Anesthesia Complications Family History: No Family History of Anesthesia Complications Exercise Tolerance Exercise Tolerance: Metabolic Equivalents>4 Pertinent Negatives Pertinent Negatives: No Symptoms of GERD, No Major Cardiovascular Symptoms or Complaints, No Major Pulmonary Symptoms or Complaints and No History of CVA/TIA Cardiac & Pulmonary Exam Cardiac Exam: Normal S1/S2 Heart Sounds Pulmonary Exam: Clear Bilateral Breath Sounds Cardiac and Pulmonary Comment:: Exercise induced asthma. Does not have an inhaler Implantable Cardiac Device Does patient have a Pacemaker or an ICD?: No Airway Exam Known Difficult Airway: No Mallampati Class: 2 Mouth Opening: Normal (> 3cm) Thyromental Distance: Greater than 3 cm Neck Range of Motion: Full ROM Neck Circumference: Normal Teeth Condition: Normal Dentition ASA Classification ASA Score: ASA 2 Emergency Case?: No NPO Status NPO Status: NPO Clears >2 hours, Solids >8 hours Status Status: Not Relevant due to Medical History Anesthesia Plan Resuscitation Status: Full Code Anesthesia Technique: Labor Epidural Airway Planned: Natural Airway Pain Management: Epidural Monitors Used: Standard Monitors
[2022-08-15] MEDS: Lactated Ringers 1,000 ML 125 ML IV (18:10)
[2022-08-15] MEDS: Normal Saline Flush 10 ML SYR IVP (18:10)
[2022-08-15] MEDS: Oxytocin/Normal Saline 30 UNIT/500 ML BAG 2 UNITS IV (18:20)
[2022-08-15] MEDS: ceFAZolin 2,000 MG in Normal Saline 100 ML 200 MG IVPB (19:26)
[2022-08-15] MEDS: Calcium Carbonate *TUMS* 500 MG CHEW 1000 MG PO (20:23)
--- NOTE | 2022-08-15 22:18 | PGE_ITS ---
Date of service: 08/15/22 Time of Service: 22:18 Informed Consent Informed Consent: Induction of Labor (for PROM >24 hrs), Regional Anesthesia and Risk,Benefits,Alternatives Discussed Pelvic Exam Dilation: 2 Effacement (%): 100 station: -2 (moderate forebag that becomes tense and bulging during contraction) Cervix Position: mid Consistency: soft Contractions Monitor Mode: External ([place]) Contraction Frequency(min): q2 min Intensity: Moderate Fetus A Monitor: External (US) ([place]) Heart Rate Baseline: 120 Variability: Moderate (6-25 BPM) Categories: Category I Accelerations: 15 X 15 Decelerations: None and Early Amniotic Membrane Status: Ruptured (unknown time on 08/14/22) Assessment and Plan Assessment and plan (1) Encounter for induction of labor: Status: Acute Assessment and plan: A: Pitocin IOL for PROM in progress Increasingly active labor, pitocin @ 8 mu/min Need for pain management Category 1 tracing P: [employer] paged for regional anesthesia Will turn pitocin down by half during procedure Consider AROM for forebag when pt more comfortable Objective Abnormal lab results 08/15/22 Range/Units 17:01 WBC 21.34 H (4.4-10.8) 10^3/uL Temp Pulse Resp BP 97.5 F L 71 16 122/65 08/15/22 21:55 08/15/22 21:57 08/15/22 18:25 08/15/22 21:57 Laboratory Results WBC 21.34 10^3/uL (4.4-10.8) H 08/15/22 17:01 RBC 4.02 10^6/uL (3.93-5.22) 08/15/22 17:01 Hgb 12.3 g/dL (11.2-15.7) 08/15/22 17:01 Hct 36.0 % (36.0-46.0) 08/15/22 17:01 MCV 90 fL (80-95) 08/15/22 17:01 MCH 30.6 pg (27.0-33.0) 08/15/22 17:01 MCHC 34.2 % (32.0-36.0) 08/15/22 17:01 RDW 13.2 % (11.7-14.6) 08/15/22 17:01 Plt Count 285 10^3/uL (130-400) 08/15/22 17:01 MPV 10.6 fL (8.0-11.0) 08/15/22 17:01 Patient ABO/Rh O Positive 08/15/22 17:01 Antibody Screen NEGATIVE 08/15/22 17:01 Vital Signs Reviewed: Yes Objective Narrative Objective Narrative: Ancef 2 gms infused after consult with MD, WBC on admit @ 21 Pt is afebrile, normotensive Vocalizing and wriggling in bed with contractions Declines use of tub or shower stating she is too hot Nitrous not much help, after cvx exam she requests epidural FOB and pt's mother at bedside for support Subjective Interval history since last seen: Pt has ambulated and used nitrous, is nauseated and hot/cold, emesis a few times, would like to have an epidural.
[2022-08-15] MEDS: Bupivacaine 0.25% Pres-Free 10 ML VIAL (23:17)
[2022-08-15] MEDS: fentaNYL 100 MCG/2 ML VIAL (23:17)
[2022-08-15] MEDS: FentaNYL/ROPIvacaine 2 mcg/ml and 0.1% 200 ML CADD Cassette EP (23:30)
--- NOTE | 2022-08-15 23:33 | W.ANESNEU ---
Epidural/Spinal Catheter Date Performed: 08/15/22 Procedure Start: 22:53 Procedure Stop: 23:30 Requesting Provider: Toshia Drake Procedure Location: Obstetrics Reason Performed: Labor Epidural Standard Monitors Applied: Blood Pressure, SpO2 and See EMR for corresponding vital signs Patient Position: Sitting Sedation Given (Indicate Dose Given): No Sedation given Patient Mental Status: Awake Sterility: Hand Hygiene, Surgical Cap, Surgical Mask, Sterile Gloves, Sterile Drape/Sheet and Chlorhexidine Procedure Location: L3-L4 Interspace Epidural Needle: Tuohy 18 Gauge Needle Length: 3.5 Inch Needle Approach: Midline Epidural Procedure: Skin Prepped, Sterile Drape Placed, 1% Lidocaine to skin and subcutaneous tissue with 25G needle, Tuohy Needle placed, DARRIN to Saline Used, Epidural Catheter Placed, Negative Heme, Negative CSF Flow and Tuohy Needle Removed Catheter Placed?: Catheter Placed Test Dose (Indicate Dose Given): 3ml 1.5% Lidocaine with 1:200K Epinephrine Given and Negative Test Dose Loss of Resistance Depth (cm): 6 Catheter depth at skin (cm): 12 Dressing: [place] Dressing Placed, Mastisol Used and Dressing reinforced with Tape Epidural Provider Bolus (Indicate Dose Given): Total bolus dose given in 3-5 ml divided doses and Total Bupivacaine 0.25% Given (ml) Dose:: 6 ml Additives (Indicate Dose Given ): Fentanyl PF Dose:: 100 mcg Infusion Medication: Medication Infusion Began Medication Infusion: Ropivacaine 0.1% with Fentanyl 2mcg/ml Maintenance Infusion Rate (ml/hour): 10 PCEA Bolus Dose (ml): 5 Post Procedure Pain score (0-10): 0 Block Level: N/A Paresthesia: None and Left Paresthesia Duration: Transient Ultrasound: Not Used Number of Attempts (See previous attempts in note section): 3 Procedure Tolerated: No Complications and Patient tolerated well Procedure Outcome: Successful Procedure Comment:: Two attempts at L2-3 and L3-4 by Beatrice HI unsuccessful, one attempt at L3-4 by Micheal Williamson HADOOP APPLICATION DEVELOPER successful. Performed By: Judy Williamson
[2022-08-16] VITALS (213 sets, daily range): BP systolic 86–142; BP diastolic 50–97; PULSE 0–122; RESP 16–18; TEMP 36.5–37.1; O2SAT 97–99
--- NOTE | 2022-08-16 00:03 | NUR.NOTE ---
Nursing Note: FHR dopplered at this time to make sure the novii reading was accurate.
[2022-08-16] MEDS: Calcium Carbonate *TUMS* 500 MG CHEW 1000 MG PO (01:29)
--- NOTE | 2022-08-16 03:10 | PGE_ITS ---
Date of service: 08/16/22 Time of Service: 03:11 Informed Consent Informed Consent: Induction of Labor (for PROM >24 hrs) and Risk,Benefits,Alternatives Discussed Pelvic Exam Comments: deferred, pt sleeping Contractions Monitor Mode: External ([place]) Contraction Frequency(min): q3-4 minutes Fetus A Monitor: External (US) ([place]) Heart Rate Baseline: 125 Variability: Moderate (6-25 BPM) Categories: Category II CategoryII Plan of Care: Observation and Continuous Monitoring/Observation Accelerations: 15 X 15 Decelerations: Early and Variable Recurrence: Periodic Amniotic Membrane Status: Ruptured Assessment and Plan Assessment and plan (1) Encounter for induction of labor: Status: Acute Assessment and plan: A: IOL for PROM > 24 hrs Effective epidural anesthesia Recurrent early decels interspersed with variables Moderate variability/accels are dominate features P: Hold pit at 4 mu/min Continue close observation of tolerance for labor Current plan of care Ancef 1 gm q8 hrs Reassess for labor progress prn Objective Vital Signs Reviewed: Yes Objective Narrative Objective Narrative: Epidural in place and effective by 2315 Reactive hypotensive episode immediately following procedure Pitocin was turned off @ 2324, improved BP with position changes, FHT decels to 80-90 also resolved After 30 minutes of category 1 tracing pitocin restarted at midnight Pit advanced to 4 mu/min, recurrent early decels interspersed with occasional variable or late decel RN turning pt frequently to decrease decel occurrence, last late decel noted @ 0230 Persistent moderate variability and accels continue, generally category 1 with pt RLP Subjective Interval history since last seen: Epidural is effective, drowsy, dozing/resting.
[2022-08-16] MEDS: Lactated Ringers 1,000 ML 125 ML IV (03:59)
--- NOTE | 2022-08-16 04:23 | W.PM.OBNL1 ---
Date of service: 08/16/22 Time of Service: 04:23 Informed Consent Informed Consent: Induction of Labor (for PROM >24 hrs) and Risk,Benefits,Alternatives Discussed Pelvic Exam Dilation: 2 Effacement (%): 100 station: -1 (large forebag) Position: LOT Cervix Position: anterior Consistency: soft Contractions Contraction Frequency(min): q3-4 Intensity: Moderate Fetus A Monitor: External (US) ([place]) Heart Rate Baseline: 120 Variability: Moderate (6-25 BPM) Categories: Category I Accelerations: 15 X 15 Decelerations: None Amniotic Membrane Status: Ruptured Assessment and Plan Assessment and plan (1) Encounter for induction of labor: Status: Acute Assessment and plan: A: Pit held at 4 mu/min, category 1 tracing for past hour No cervical change due to inadequate contractions Effective epidural in place P: Titrate pitocin as tolerance permits Position changes to facilitate rotation AROM of forebag if tracing remains stable Objective Objective Narrative Objective Narrative: Voiding on bedpan x2, 400 ml and 200 ml 2nd dose of Ancef infusing Emesis now and then, clear liquid diet in effect Pt has napped and rested A period of category 2 tracing resolved with RLP position Will reposition to LLP with use of pnball Resume increasing pitocin toward adequate contraction pattern If FHT tolerates increase in contractions, will AROM forebag Subjective Interval history since last seen: Comfortable, numb, relaxed
--- NOTE | 2022-08-16 07:11 | W.PM.OBNL1 ---
Date of service: 08/16/22 Time of Service: 07:11 Informed Consent Informed Consent: Induction of Labor (for PROM >24 hrs) and Risk,Benefits,Alternatives Discussed Pelvic Exam Dilation: 4 Effacement (%): 100 station: -1 Position: LOT Cervix Position: anterior Consistency: soft Contractions Contraction Frequency(min): q3-4 Contraction Duration(sec): 60-70 Intensity: Moderate/Strong Fetus A Heart Rate Baseline: 130 Variability: Moderate (6-25 BPM) Categories: Category I Accelerations: 15 X 15 Decelerations: Early and Variable Recurrence: Intermittent Amniotic Membrane Status: Ruptured Assessment and Plan Assessment and plan (1) Encounter for induction of labor: Status: Acute Assessment and plan: A: Progression to 4 cm, descent to -1, pit @ 10 mu/min Improvement in tracing is positional Category 1 currently Effective anesthesia P: ROM of forebag, continue pitocin titration for adequate labor Zofran IVPB for nausea Dr. Gonzalez available for consultation Anticipate Subjective Interval history since last seen: Nausea and vomiting periodically, pt unable to keep water down but feels thirsty and her mouth is dry. Epidural is working well.
[2022-08-16] MEDS: Ondansetron 4 MG/2 ML VIAL 8 MG IVP (07:35)
[2022-08-16] MEDS: Normal Saline Flush 10 ML SYR IVP (07:35)
--- NOTE | 2022-08-16 08:05 | W.PM.OBNL1 ---
Date of service: 08/16/22 Time of Service: 08:05 Informed Consent Informed Consent: Induction of Labor (for PROM >24 hrs), Risk,Benefits,Alternatives Discussed and Other (AROM of forebag) Pelvic Exam Dilation: 6 Effacement (%): 100 station: 0 Position: JEAN Contractions Contraction Frequency(min): q3 Intensity: Moderate/Strong Fetus A Heart Rate Baseline: 125 Variability: Moderate (6-25 BPM) Categories: Category II Accelerations: 15 X 15 Decelerations: Early and Variable Amniotic Membrane Status: Ruptured (Forebag AROM'ed) Assessment and Plan Assessment and plan (1) Encounter for induction of labor: Status: Acute Assessment and plan: A: Progressed to 6cm, descent to 0 station Active labor, pitocin @ 10 mu/min Category 2 tracing due to variable decels Effective epidural P: Reviewed tracing with Dr. Carlos ADORNO of forebag for clear fluids Anticipate Objective Vital Signs Reviewed: Yes Subjective Interval history since last seen: Comfortable
--- NOTE | 2022-08-16 11:13 | OBVDS_ITS ---
Date of service: 08/16/22 Time of Service: 11:13 OB Labor/ Delivery Information Baby A Delivery Delivery Method: Spontaneaous Presentation: Cephalic Cephalic Position: Vertex Vertex Position: Right Occipital Anterior Cord Description-Baby A: 3 Vessels Cord Description Comment: small appearing placenta with short thin cord Amniotic Fluid: Clear Estimated Blood Loss: 150 ml Delivery Outcome: Liveborn Infant Transferred: Remains with Mother Providers Nurse Mannequin Wig Maker: Toshia Drake Nurse: Mike Alfonso Nurse: Mary Mckeon Labor/Delivery Information Number of Babies in Womb: 1 Steroids Given: None Reason Steroids Not Administered: N/A Group Beta Strep: Negative Rubella Status: Immune Blood Type: O+ Varicella Immunity: Immune Note: At 6 cm dilation early decels and occasional variables persisted, pt turned to H&K position with improvement to category 1 tracing for an hour, pitocin turned down to 11 mu/min, vaginal exam revealed full dilation, vtx +1, 2nd stage huddle completed, pt began pushing with excellent efforts, moderate variability and accels noted on tracing. over intact perineum accomplished of a vigorous female , shoulders easily delivered and placed immediately on mother's abdomen due to short cord. Pitocin IV bolus begun, cord has ceased pulsating and was clamped/cut by FOB at 2 minutes of age, cord blood collected, Toth placenta delivered intact with 3 VC. perineum is intact, no lacerations, minimal rubra. Strong family bonding observed, apgars 7/8, weight 2265 gms. Stages of Labor Onset of Labor Date: 08/15/22 Complete Dilatation Date: 08/16/22 Complete Dilatation Time: 09:18 ROM Baby A: 08/14/22 ROM Baby A: 07:59 Infant Delivery Date-Baby A: 08/16/22 Delivery Time-Baby A: 10:30 Labor Stage 2 Duration: 1 hours and 12 minutes Placenta Delivery Date-Baby A: 08/16/22 Placenta Delivery Time-Baby A: 10:40 Labor-Stage 3 Duration: 10 minutes Placenta Status: Delivered Baby A Infant Gender: Female Gestational Status: Term (39-41.6 wks) Gestational Age in Weeks/Days: 40 Weeks and 0 Days weight: 4 lb 15.896 oz Weight Comment: 2265 gms Score-1 Minute Interval(Baby A) Heart Rate-1 minute: 100 BPM or Greater Respiratory Effort- 1 minute: Slow Respiration/Weak Cry Muscle Tone-1 minute: Active Movement Reflex Response-1 minute: Minimal Response Color-1 minute: Bluish Hands or Feet Total Score-1 minute: 7 Score-5 Minute Interval(Baby A) Heart Rate- 5 minute: 100 BPM or Greater Respiratory Effort-5 minute: Slow Respiration/Weak Cry Muscle Tone-5 minute: Active Movement Reflex Response-5 minute: Prompt Response Color-5 minute: Bluish Hands or Feet Total Score- 5 minute: 8
[2022-08-16] MEDS: Ibuprofen 600 MG TAB PO (13:45)
[2022-08-16] MEDS: Acetaminophen 325 MG TAB 650 MG PO ×2 (13:45→22:03)
[2022-08-17] MEDS: Ibuprofen 600 MG TAB PO (02:46)
[2022-08-17 09:03] VITALS: BP 128/68; PULSE 68; RESP 18; TEMP 37.1
--- NOTE | 2022-08-17 09:21 | W.PM.OBPNV1 ---
Date of service: 08/17/22 Time of Service: 09:21 Assessment and Plan Assessment and plan (1) Normal vaginal delivery: Status: Acute Assessment and plan: A: Nml PPD#1 is off to a good start Satisfied with experience P: Will discharge later today if baby is released F/up at 2 & 6 wks Declines BCM, plans to use condoms Written instructions reviewed and given to pt Subjective Subjective Patient comments: No complaints, Pain well controlled, Tolerating diet and Flatus present Patient's Mood: happy [place] baby status: Doing well, Nursing well, Rooming in and Strong Bonding Observed [place] feeding status: Exclusively breast feeding Exam Physical Exam Vital signs: Temp Pulse Resp BP Pulse Ox 98.8 F 68 18 128/68 99 08/17/22 09:03 08/17/22 09:03 08/17/22 09:03 08/17/22 09:03 08/16/22 15:19 Vital Signs Reviewed: Yes Constitutional Constitutional: no acute distress, average body habitus and cooperative HEENT Exam HEENT Exam: Normal Neck Exam Neck Exam: Normal Breast Exam Bilateral: Breast Exam: Normal and Soft Nipple Exam: Normal and Uninjured Respiratory Exam Respiratory Exam: Normal Cardiovascular Exam Cardiovascular Exam: Normal Abdominal Exam Abdomen: Other (soft, nontender) Fundal Exam Fundus: Below Umbilicus and Firm Rectal Exam Rectal Exam: Normal Exam Perineum: Intact and Normal Extremities Exam Extremity Exam: Normal, Full ROM and Warm to Touch Back/Spine/Pelvis Exam Back Exam: Normal Skin Exam Skin Exam: Normal Neurological Exam Neurological Exam: Normal Psychiatric Exam Psychiatric Exam: Normal
--- NOTE | 2022-08-17 09:43 | W.PM.OBDISCH ---
Date of service: 08/17/22 Time of Service: 09:43 DS: Diagnosis Discharge Diagnosis (1) Normal vaginal delivery: Status: Acute Discharge Plan Disposition Patient Disposition: Home Condition: Good Discharge Details Reason For Visit: NST Admit Date/Time: 08/15/22 16:48 Admit Provider: Toshia Drake Attending Provider: Toshia Drake Primary Care Provider: Tenzin Rios Hospital Course Hospital Course: PROM for unknown period of time, induction of labor resulting in , discharge on PPD#1 at pt request Home Meds and New Rx's Prescriptions: No Action prenat.vits,bruna,[id number] Tablet 1 tab PO DAILY Discharge Instructions Additional Instructions: Keep your 2 and 6 week appointments, call for any and all questions or concerns. Stand Alone Forms: BC Instructions, BC Post Vaginal Deliver Activity:: Activity as Tolerated Equipment/Supplies:: No Equipment Needed Diet:: Normal Diet OB:DS Summary Summary Vaginal Delivery Method: Spontaneaous Episiotomy Description: None Laceration Description: None Laceration Extension: N/A Contraception Discussed Contraception Discussed: Yes Contraceptive Plan: Foam/Condoms, Gender-Baby A: Female weight: 4 lb 15.896 oz Status at Discharge Functional status at discharge: independent ambulation Overall status at discharge: patient is progressing back to baseline Mental Status: mental status grossly normal Speech and Movement: speech and movement normal and speech clear Mood: congruent mood Affect: normal affect Exam Physical Exam Vital signs: Temp Pulse Resp BP Pulse Ox 98.8 F 68 18 128/68 99 08/17/22 09:03 08/17/22 09:03 08/17/22 09:03 08/17/22 09:03 08/16/22 15:19 Vital Signs Reviewed: Yes Constitutional Constitutional: no acute distress, average body habitus and cooperative HEENT Exam HEENT Exam: Normal Neck Exam Neck Exam: Normal Breast Exam Bilateral: Breast Exam: Normal and Soft Respiratory Exam Respiratory Exam: Normal Cardiovascular Exam Cardiovascular Exam: Normal Abdominal Exam Abdomen: Other (soft, nontender) Fundal Exam Fundus: Below Umbilicus and Firm Rectal Exam Rectal Exam: Normal Exam Perineum: Intact and Normal Extremities Exam Extremity Exam: Normal, Full ROM and Warm to Touch Back/Spine/Pelvis Exam Back Exam: Normal Skin Exam Skin Exam: Normal Neurological Exam Neurological Exam: Normal Psychiatric Exam Psychiatric Exam: Normal Additional findings Additional findings: deferred, pt sleeping PFSH All Active Problems (Updated 08/17/22 @ 09:23 by Toshia Drake) Normal vaginal delivery (Acute) Medullary sponge kidney (Acute 11/27/15) Marijuana smoker (Acute) Anxiety (Chronic) Depression (Chronic) Medical History (Updated 08/17/22 @ 09:23 by Toshia Drake) Abdominal pain in female (11/09/15) Abnormal finding on ultrasound Asthma Encounter for induction of labor Exposure to cigarette smoke Female pelvic pain Gestational diabetes Hematuria (11/09/15) Other specified counseling Patient desires PROM with onset of labor more than 24 hours following rupture Recurrent UTI (11/09/15) Family History (Updated 02/06/22 @ 15:41 by Rachael Josue CNM) Mother Hypertension Thyroid disease Maternal Grandmother Hypertension Thyroid disease Social History (Updated 06/15/21 @ 11:28 by Melanie Moran) Smoking/Tobacco Use Status: Never Smoking risk assessment performed?: Yes Alcohol Intake: current Alcohol Intake frequency: a few times a month Drug use: Daily Substance use type: marijuana What is your relationship status?: living with partner Panel score (0-1 are the most socially isolated patients): 1 Do you feel safe at home: Yes Do you feel safe in your relationship?: Yes Female Reproductive History Menstrual Age of Menarche: 13 Duration of menses: 3-5 days control method: none History History 1 Para 0 Hx # Term Pregnancies 0 Multiple births 0 Hx # Pregnancies 0 Ectopic pregnancies 0 AB induced 0 Hx Number of Living Children 0 AB spontaneous 0 DS: Data Vitals/I&O Vitals and I&O: Vital Signs Temperature 98.8 F 08/17/22 09:03 Temperature 98.2 F 08/15/22 16:06 Temperature Source Oral 08/17/22 09:03 Pulse 68 08/17/22 09:03 Pulse 93 08/15/22 16:06 Pulse Rhythm Regular 08/17/22 08:26 Respiratory Rate 18 08/17/22 09:03 Blood Pressure 128/68 08/17/22 09:03 Blood Pressure 107/58 08/15/22 16:06 Blood Pressure Mean 88 08/17/22 09:03 Pulse Oximetry 99 08/16/22 15:19 Pain Level 0 08/17/22 09:03 Intake & Output 08/16/22 08/16/22 08/17/22 11:59 23:59 11:59 Intake Total 1505.700 / 1505.700 550 / 550 Output Total 1550 / 2300 750 / 2300 Balance -44.300 / -794.300 -750 / -794.300 550 / 550 Intake: IV 1155.700 / 1155.700 Oral 350 / 350 550 / 550 Output: Urine 950 / 1700 750 / 1700 Emesis 600 / 600 Other: Urine Color Yellow Yellow Yellow Urine Appearance Clear Clear Urine Odor None None Comment straight cath Voiding Methods Bedpan Toilet
== END 2022-08-17 15:45 | disposition home or self-care (01) | DRG 806 ==
LOC: BCD 08-19 08:31 → OBS 08-19 08:31
PROVIDERS: Admitting Provider Advanced Practice Midwife; PCP Physician Assistant Medical; Visit Provider Advanced Practice Midwife
DX: O42.12 Full-term premature rupture of membranes, onset of labor more than 24 hours following rupture (principal); Q61.5 Medullary cystic kidney; Z37.0 Single live birth; Z3A.39 39 weeks gestation of pregnancy; O99.324 Drug use complicating childbirth; O24.420 Gestational diabetes mellitus in childbirth, diet controlled; O99.344 Other mental disorders complicating childbirth; F41.8 Other specified anxiety disorders; O99.892 Other specified diseases and conditions complicating childbirth; N28.89 Other specified disorders of kidney and ureter; F12.90 Cannabis use, unspecified, uncomplicated; O76 Abnormality in fetal heart rate and rhythm complicating labor and delivery; O69.3XX0 Labor and delivery complicated by short cord, not applicable or unspecified; O43.893 Other placental disorders, third trimester
CPT/HCPCS: 85027; 86850; 86900; 86901; 59025; J0690; J2405; J3010

== ENCOUNTER 2022-11-15 13:33 | Outpatient (REF) | payer MEDICAID, SELFPAY | END 2022-11-15 13:34 | disposition home or self-care (01) | LOC: NCHCN 13:33 | PROVIDERS: PCP Physician Assistant Medical; Visit Provider Physician Assistant Medical | DX: N39.0 Urinary tract infection, site not specified (principal) | CPT/HCPCS: 87086 ==

== ENCOUNTER → 2023-01-09 01:40 | Outpatient (CLI) | payer MEDICAID, SELFPAY ==
--- NOTE | 2023-01-09 | DI.US_ITS ---
Exam(s) US PELVIS TRANSVAGINAL EXAM: US PELVIS TRANSVAGINAL CLINICAL HISTORY: MENSTRUAL IRREGULARITY,N92.6. TECHNIQUE: Transabdominal and transvaginal pelvic ultrasound was performed using standard protocol. COMPARISON: US US PELVIS TRANSVAGINAL from 01/26/2018 FINDINGS: UTERUS: Position: Retroverted. Size: 5.4 long by 2.6 AP by 3.6 transverse cm Endometrium: 0.4 cm. Normal for patient's menstrual status. Myometrium: Unremarkable. Cervix: Unremarkable. OVARIES: Right: 3.2 x 2.9 x 2.8 cm Cyst or mass: No suspicious cystic or solid masses. Left: 3.9 x 3 x 3.2 cm Cyst or mass: No suspicious cystic or solid masses. There is a 2.2 cm simple functional cyst on the left ovary. DOPPLER: Color: Symmetric and uniform flow to both ovaries. CUL-DE-SAC: Free fluid: None. Other: None. IMPRESSION: 1. Normal-appearing uterus with endometrial stripe within normal limits. 2. Unremarkable bilateral ovaries. DATA REPOSITORY:
== END ==
PROVIDERS: PCP Physician Assistant Medical; Visit Provider Physician Assistant Medical
DX: N92.6 Irregular menstruation, unspecified (principal)
CPT/HCPCS: 76830; 76856

== ENCOUNTER 2023-10-06 16:26 | Outpatient (REF) | payer MEDICAID, SELFPAY | END 2023-10-06 16:27 | disposition home or self-care (01) | LOC: LBN 16:26 | PROVIDERS: PCP Physician Assistant Medical; Visit Provider Nurse Practitioner Family | DX: N30.00 Acute cystitis without hematuria (principal) | CPT/HCPCS: 87086 ==